=== PATIENT | female | born 1985 | race Two or more races ===

== ENCOUNTER 2020-04-02 11:11 | Emergency (ER) | payer MEDICAID, OTHER ==
[2020-04-02 11:17] VITALS: BP 119/64
[2020-04-02] MEDS ORDERED: TETANUS-DIPTH-ACEL PERTUSSIS 0.5ML SYR Tdap IM ONE (11:30)
[2020-04-02] MEDS ORDERED: LIDOCAINE 1% HCL (LOCAL ANESTH.) INJ 20ML MDV IJ ONE (11:30)
== END 2020-04-02 12:23 | disposition home or self-care (01) ==
LOC: ER 11:11
DX: S61.213A Laceration without foreign body of left middle finger without damage to nail, initial encounter (principal); W26.0XXA Contact with knife, initial encounter; Y93.89 Activity, other specified; Y92.89 Other specified places as the place of occurrence of the external cause; Y99.8 Other external cause status
CPT/HCPCS: 12002; 99282; J2001